=== PATIENT | female | born 1965 | race Hispanic/Latino ===

== ENCOUNTER 2023-06-25 13:16 | Emergency (ER) | payer MEDICAID ==
[~2023-06-25] VITALS: Ht 154.9 cm; Wt 63.5 kg
[2023-06-25 13:56] VITALS: BP 117/79; PULSE 97; RESP 18
[2023-06-25 14:25] LABS: RAPID GROUP A STREP negative (NEGATIVE); SARS-CoV-2, RNA, NAAT NEGATIVE SARS CoV-2 (NEGATIVE)
[2023-06-25 14:32] LABS: INFLUENZA TYPE A Negative For Type A (NEGATIVE); INFLUENZA TYPE B Negative For Type B (NEGATIVE)
[2023-06-25] MEDS ORDERED: LEVO-70 PO (17:08)
== END 2023-06-25 19:14 | disposition home or self-care (01) ==
LOC: EDH 13:16
DX: J18.9 Pneumonia, unspecified organism (principal); Z20.822 Contact with and (suspected) exposure to COVID-19
CPT/HCPCS: 99285; 71046; 87635; 87880; 87804 ×2; 93005; C9803